=== PATIENT | female | born 1990 | race American Indian/Alaskan Native ===

== ENCOUNTER 2020-05-09 11:20 | Outpatient (CLI) | payer OTHER | END 2020-05-09 16:44 | disposition home or self-care (01) | LOC: LAB 11:20 → APU 16:31 → LAB 16:44 | PROVIDERS: ATTEND Nurse Practitioner Women's Health | DX: O26.892 Other specified pregnancy related conditions, second trimester (principal); Z67.41 Type O blood, Rh negative; Z3A.27 27 weeks gestation of pregnancy | CPT/HCPCS: 86850; 86900; 86901; 96372; J2790 ==

== ENCOUNTER 2020-07-24 23:03 | Outpatient (CLI) | payer OTHER ==
[2020-07-24 23:46] VITALS: BP 100/65
[2020-07-25] MEDS ORDERED: TERBUTALINE 1 MG/1 ML INJ SUB-Q PRN (00:28)
[2020-07-25] MEDS ORDERED: LACTATED RINGERS 1,000 ML IV ONE (00:28)
== END 2020-07-25 01:10 | disposition home or self-care (01) ==
LOC: TRG 23:03 → APU 23:05 → TRG 07-25 01:10
PROVIDERS: ATTEND Obstetrics & Gynecology
DX: O47.1 False labor at or after 37 completed weeks of gestation (principal); Z3A.39 39 weeks gestation of pregnancy
CPT/HCPCS: 59025

== ENCOUNTER 2020-07-26 21:52 | Outpatient (CLI) | payer OTHER ==
[2020-07-26 22:04] VITALS: BP 143/66
== END 2020-07-26 23:10 | disposition home or self-care (01) ==
LOC: TRG 21:52 → APU 21:53 → TRG 23:10
PROVIDERS: ATTEND Obstetrics & Gynecology
DX: O47.1 False labor at or after 37 completed weeks of gestation (principal); Z3A.39 39 weeks gestation of pregnancy
CPT/HCPCS: 59025